=== PATIENT | female | born 1980 | race Caucasian/White ===

== ENCOUNTER 2016-11-01 17:10 | Observation (INO) | payer OTHER ==
[~2016-11-01] VITALS: Ht 157.5 cm; Wt 74.8 kg
[2016-11-01] MEDS ORDERED: RINGERS SOLUTION,LACTATED 1,000 ML IV SCH (17:45)
[2016-11-01] MEDS ORDERED: RINGERS SOLUTION,LACTATED 1,000 ML IV ONE (17:45)
[2016-11-01 17:47] VITALS: BP 106/62
[2016-11-01] MEDS ORDERED: NIFEdipine 10 MG CAPSULE PO ONE (18:45)
== END 2016-11-01 20:50 | disposition home or self-care (01) ==
LOC: 4S 17:10
PROVIDERS: ADMIT Obstetrics & Gynecology; ATTEND Obstetrics & Gynecology
DX: O60.03 Preterm labor without delivery, third trimester (principal); O26.893 Other specified pregnancy related conditions, third trimester; R10.9 Unspecified abdominal pain; O09.513 Supervision of elderly primigravida, third trimester; Z3A.35 35 weeks gestation of pregnancy
CPT/HCPCS: 59025; 96360; 96361; G0378; J7120

== ENCOUNTER 2016-11-26 03:28 | Inpatient (IN) | payer OTHER ==
[~2016-11-26] VITALS: Ht 154.9 cm; Wt 76.2 kg
[2016-11-26 04:35] VITALS: BP 106/70
[2016-11-26] MEDS ORDERED: PREN-134 PO (04:41)
[2016-11-26] MEDS ORDERED: OXYTOCIN 30 UNITS/LACT RINGERS 500 ML IV ONE (09:32)
[2016-11-26] MEDS ORDERED: RINGERS SOLUTION,LACTATED 1,000 ML IV PRN ×2 (09:32→09:38)
[2016-11-26] MEDS ORDERED: OXYTOCIN 30 UNITS/LACT RINGERS 500 ML IV PRN (09:32)
[2016-11-26] MEDS ORDERED: RINGERS SOLUTION,LACTATED 1,000 ML IV SCH (09:38)
[2016-11-26] MEDS ORDERED: METOCLOPRAMIDE HCL 5 MG/ML 2 ML VIAL IVP PRN ×3 (09:45→16:00)
[2016-11-26] MEDS ORDERED: LIDOCAINE HCL/PF 1% 30 ML VIAL INJ PRN ×2 (09:45→16:00)
[2016-11-26] MEDS ORDERED: FentaNYL CITRATE-PF 100 MCG/2 ML VIAL IVP PRN ×2 (09:45→16:00)
[2016-11-26] MEDS ORDERED: CITRIC ACID/SODIUM CITRATE 30 ML SOLUTION UDCUP PO PRN ×3 (09:45→16:00)
[2016-11-26 10:02] LABS: BASOPHILS % (AUTO) 0.8 % (0.0-2.0); EOSINOPHILS % (AUTO) 0.7 % (1.0-6.0); HEMATOCRIT 33.9 % (36-46); HEMOGLOBIN 11.4 g/dL (12.0-16.0); LYMPHOCYTES % (AUTO) 19.6 % (22.0-44.0); MEAN CORPUSCULAR HEMOGLOBIN 27.3 pg (26.0-34.0); MEAN CORPUSCULAR HGB CONC 33.7 G/dL (31.0-37.0); MEAN CORPUSCULAR VOLUME 81 fL (80-100); MONOCYTES # (AUTO) 0.7 K/uL (0.1-1.0); NEUTROPHILS # (AUTO) 7.3 K/uL (1.8-7.7); NEUTROPHILS % (AUTO) 71.9 % (40.0-70.0); RED BLOOD CELL COUNT(AUTO) 4.19 MIL/uL (4.00-5.20); RED CELL DISTRIBUTION WIDTH 14.7 % (11.5-14.5); WHITE BLOOD COUNT (AUTO) 10.2 K/uL (4.5-11.0)
[2016-11-26] MEDS: RINGERS SOLUTION,LACTATED 1,000 ML IV SCH ×2 (10:13→20:25)
[2016-11-26] MEDS ORDERED: OXYGEN THERAPY IH SCH (20:00)
[2016-11-26] MEDS ORDERED: DEXTROSE 5%-LACTATED RINGERS 1,000 ML IV ONE (20:15)
[2016-11-26] MEDS ORDERED: FentaNYL/BUPIV 0.125%/NS/PF 200 ML ED PRN (20:26)
[2016-11-26] MEDS: OXYGEN THERAPY IH SCH (20:27)
[2016-11-26] MEDS ORDERED: LIDOCAINE HCL/PF 2% 5 ML VIAL ONE (20:33)
[2016-11-26] MEDS ORDERED: FentaNYL/BUPIV 0.125%/NS/PF 200 ML ED ONE (20:33)
[2016-11-26] MEDS ORDERED: FAMOTIDINE 10 MG/ML 2 ML VIAL IVP ONE (21:00)
[2016-11-27] MEDS ORDERED: CeFAZolin 1 GM/DEXTROSE 50 ML IV ONE (00:30)
[2016-11-27] MEDS ORDERED: ACETAMINOPHEN 1000 MG/ISO-OSM 100 ML IV ONE (00:30)
[2016-11-27] MEDS ORDERED: RINGERS SOLUTION,LACTATED 1,000 ML IV ONE (01:22)
[2016-11-27] MEDS ORDERED: GLYCERIN/WITCH HAZEL LEAF 40 PADS JAR TP PRN (01:30)
[2016-11-27] MEDS ORDERED: LIDOCAINE HCL/PF 1% 30 ML VIAL INJ PRN (01:30)
[2016-11-27] MEDS ORDERED: OxyCODONE HCL/ACETAMINOPHEN 5-325 MG TABLET PO PRN ×2 (01:30)
[2016-11-27] MEDS: IBUPROFEN 600 MG TABLET PO PRN ×3 (02:37→20:49)
[2016-11-27] MEDS: OXYGEN THERAPY IH SCH (08:00)
[2016-11-27] MEDS: SENNA/DOCUSATE SODIUM 187-50 MG TABLET PO SCH ×2 (08:52→20:49)
[2016-11-28 07:53] LABS: BASOPHILS % (AUTO) 0.3 % (0.0-2.0); EOSINOPHILS % (AUTO) 0.8 % (1.0-6.0); HEMATOCRIT 32.3 % (36-46); HEMOGLOBIN 10.7 g/dL (12.0-16.0); LYMPHOCYTES # (AUTO) 2.4 K/uL (1.0-4.8); LYMPHOCYTES % (AUTO) 20.1 % (22.0-44.0); MEAN CORPUSCULAR HEMOGLOBIN 27.3 pg (26.0-34.0); MEAN CORPUSCULAR VOLUME 83 fL (80-100); MONOCYTES # (AUTO) 0.8 K/uL (0.1-1.0); MONOCYTES % (AUTO) 6.8 % (2.0-9.0); NEUTROPHILS # (AUTO) 8.5 K/uL (1.8-7.7); RED CELL DISTRIBUTION WIDTH 15.1 % (11.5-14.5); WHITE BLOOD COUNT (AUTO) 11.8 K/uL (4.5-11.0)
[2016-11-28] MEDS: IBUPROFEN 600 MG TABLET PO PRN (08:27)
[2016-11-28] MEDS: SENNA/DOCUSATE SODIUM 187-50 MG TABLET PO SCH (08:27)
[2016-11-28] MEDS ORDERED: DSS100 PO (09:02)
[2016-11-28] MEDS ORDERED: IBUP-2070 PO (09:02)
== END 2016-11-28 11:15 | disposition home or self-care (01) | DRG 775 ==
LOC: 4S 03:28 → OBSVTOIN 03:28
PROVIDERS: ADMIT Obstetrics & Gynecology; ATTEND Obstetrics & Gynecology
PROC: 10E0XZZ Delivery of Products of Conception, External Approach (ICD-10-PCS; principal; 2016-11-27)
PROC: 0KQM0ZZ Repair Perineum Muscle, Open Approach (ICD-10-PCS; 2016-11-27)
PROC: 3E0S3CZ (ICD-10-PCS; 2016-11-27)
PROC: 00HU33Z Insertion of Infusion Device into Spinal Canal, Percutaneous Approach (ICD-10-PCS; 2016-11-27)
DX: O70.1 Second degree perineal laceration during delivery (principal); Z37.0 Single live birth; O09.523 Supervision of elderly multigravida, third trimester; Z3A.39 39 weeks gestation of pregnancy
CPT/HCPCS: 86706; 86850; 86900; 86901; 87340; 89060; J0131; J0690; J2590; J3010; J3490; J7120